=== PATIENT | male | born 1960 | race Caucasian/White ===

== ENCOUNTER 2021-05-28 13:40 | Emergency (ER) | payer OTHER ==
[2021-05-28] MEDS ORDERED: Ketorolac 10 MG Tab PO ONE (14:10)
[2021-05-28] MEDS ORDERED: Amoxicillin/Clavulanate K 875-125 MG Tab PO ONE (14:11)
--- NOTE | 2021-05-28 14:24 | EDM.PDOC ---
ED HPI GENERAL MEDICAL PROBLEM - General Stated Complaint: TOOTH PAIN Time Seen by Provider: 05/28/21 13:55 History Limitations: Reports: No Limitations - History of Present Illness INITIAL COMMENTS - FREE TEXT/NARRATIVE: 61-year-old gentleman came to the emergency department because of tooth pain. He states that the pain started about 5 days ago when he has been trying to get into see somebody but has not been able to get an appointment with a dentist. Pain is increased significantly and last night he began to run a fever. He has been taking Tylenol and ibuprofen with temporary mild relief. He rates the pain is severe. The pain is in the left posterior mandible/molar area. He denies any dysphagia, nausea, vomiting, change in bowel or bladder habits. He does have a history of asthma and has chronic difficulties with wheezing and coughing. - Related Data Allergies Allergy/AdvReac Type Severity Reaction Status Date / Time Sulfa (Sulfonamide Allergy Hives Verified 05/28/21 14:34 Antibiotics) Home Meds: Home Meds Amoxicillin/Potassium Clav [Augmentin 875-125 Tablet] 1 each PO BID #19 tablet 05/28/21 [Rx] Fluticasone/Salmeterol [Advair 250-50] 2 puff BID 05/28/21 [History] Levothyroxine 225 mcg PO ACBREAKFAST 05/28/21 [History] Montelukast [Singulair] 10 mg PO DAILY 05/28/21 [History] ED ROS ENT - Review of Systems Review Of Systems: See Below Constitutional: Reports: No Symptoms HEENT: Reports: Dental Pain, Other Respiratory: Reports: No Symptoms Cardiovascular: Reports: No Symptoms Endocrine: Reports: No Symptoms GI/Abdominal: Reports: No Symptoms : Reports: No Symptoms Musculoskeletal: Reports: No Symptoms Skin: Reports: No Symptoms Neurological: Reports: No Symptoms Psychiatric: Reports: No Symptoms Hematologic/Lymphatic: Reports: No Symptoms Immunologic: Reports: No Symptoms ED EXAM, ENT - Physical Exam Exam: See Below Exam Limited By: No Limitations General Appearance: Alert, WD/WN, No Apparent Distress Eye Exam: Bilateral Eye: EOMI Mouth/Throat: Dental Abcess, Dental Pain, Dental Tenderness, Gum Swelling. No: Bleeding, Hoarse Voice, Lip Swelling, Lip Ulcers, Muffled Voice, Oral Ulcers Head: Atraumatic, Normocephalic Neck: Other (Tenderness to palpation just inferior to the left proximal mandible). No: Full Range of Motion, Lymphadenopathy (L) Respiratory/Chest: No Respiratory Distress, Lungs Clear, Normal Breath Sounds Cardiovascular: Normal Peripheral Pulses, Regular Rate, Rhythm, No Edema, No Gallop, No Murmur GI/Abdominal: Normal Bowel Sounds, Soft, Non-Tender Back: Normal Inspection. No: CVA Tenderness (R), CVA Tenderness (L) Extremities: Normal Inspection Neurological: Alert, Oriented, CN II-XII Intact, Normal Cognition, Normal Gait Psychiatric: Normal Affect, Normal Mood Skin: Warm, Dry, Intact, Other (No erythema inferior to the left mandible) Course - Vital Signs Text/Narrative:: Patient given a single dose of Augmentin 875/125. Prescription for Augmentin sent to [email or web address]. Patient advised to follow-up with dental/primary care. Departure - Departure Time of Disposition: 14:40 Disposition: Home, Self-Care 01 Condition: Good Clinical Impression: Dental abscess - Discharge Information *PRESCRIPTION DRUG MONITORING PROGRAM REVIEWED*: Not Applicable *COPY OF PRESCRIPTION DRUG MONITORING REPORT IN PATIENT MECHE: Not Applicable Instructions: Dental Abscess Additional Instructions: Patient was given 30 mg Toradol IM and Augmentin 875/125 p.o. A prescription for Augmentin 875/125 was sent to his pharmacy and he was instructed to take this medication as directed until completion. Advised not to take NSAIDs today and to take Tylenol only for the rest of the day. He was advised to alternate NSAIDs and Tylenol for pain control starting tomorrow and to follow-up with dental/primary care.
[2021-05-28] MEDS ORDERED: Ketorolac 30 MG/ML SDV IM ONE (14:38)
== END 2021-05-28 15:00 | disposition home or self-care (01) ==
LOC: FB.ED 13:40
DX: K04.7 Periapical abscess without sinus (principal); Z88.2 Allergy status to sulfonamides; Z79.899 Other long term (current) drug therapy
CPT/HCPCS: 96372; 99282; A9270; J1885